=== PATIENT | male | born 1990 | race Caucasian/White ===

== ENCOUNTER 2018-03-27 08:04 | Emergency (ER) | payer OTHER ==
[~2018-03-27] VITALS: Ht 162.6 cm; Wt 70.3 kg
[~2018-03-27 08:04] MED LIST: ALBUTEROL2.5 MG/3 M INH/SOL; PREDNISONE10 M2 PO; PROVENTIL HFA6.7 GM INH
[2018-03-27 08:08] VITALS: BP 134/86
--- NOTE | 2018-03-27 08:51 | RADIOLOGY REPORT ---
EXAMINATION: CR CHEST CLINICAL INFORMATION: Left-sided lateral and posterior rib pain. Presumptive diagnosis of pneumonia, CHF, wide mediastinum. COMPARISON: Left shoulder films dated 04/08/2008. TECHNIQUE: 2 views of the chest were obtained. FINDINGS: The cardiomediastinal silhouette is within normal limits in size. Lungs bilaterally are symmetrically expanded and clear. No focal consolidation, effusion or pneumothorax is seen. Bony structures are unremarkable. No rib fracture is seen. IMPRESSION: Unremarkable examination. No evidence of pneumonia, CHF or wide mediastinum.
--- NOTE | 2018-03-27 09:01 | ED GENERAL ADULT ---
History of Present Illness General Chief Complaint: General Adult Stated Complaint: PAIN IN RIB MARY LEFT SIDE NO INJURY Source: patient Exam Limitations: no limitations Vital Signs & Intake/Output Vital Signs & Intake/Output Vital Signs Date Time Temp Pulse Resp B/P B/P Pulse O2 O2 Flow FiO2 Mean Ox Delivery Rate 03/27 0808 98.6 83 18 134/86 98 Room Air Allergies Coded Allergies: No Known Allergies (02/24/18) Reconcile Medications No Known Home Medications Triage Note: 27 YO MALE TO TRIAGE FOR EVAL OF L SIDED RIB PAIN, STATES PAIN IS WORSE ON INSPIRATION. RA SATS 98%. DENIES INJURY TO AREA. Triage Nurses Notes Reviewed? yes Onset: Abrupt Duration: week(s): (1-2), constant, continues in ED Timing: single episode today Injury Environment: home Severity: mild, moderate Severity Numbers: 8 No Modifying Factors: none HPI: 27-year-old male with a history of asthma presents for evaluation presents for evaluation of left lateral rib pain. Patient reports symptoms started 1-2 weeks in a been persistent. The pain is located in the left lateral ribs and does not radiate. The pain is present only with palpation and range of motion or deep inspiration. He denies any sugar event or trauma. He denies shortness of breath hemoptysis lower extremity edema or recent surgery or recent trauma. He has not taken any medicine for this. He denies any chest pain or back pain. No dizziness lightheadedness sweats chills nausea or vomiting. (Parth Alas) Past History Travel History Traveled to [place] past 21 day No Medical History Any Pertinent Medical History? see below for history Neurological: NONE EENT: NONE Cardiovascular: NONE Respiratory: asthma Gastrointestinal: NONE Hepatic: NONE Renal: NONE Musculoskeletal: NONE Psychiatric: NONE Endocrine: NONE Blood Disorders: NONE Cancer(s): NONE MASTER ELECTRICIAN/Reproductive: NONE Surgical History Surgical History: non-contributory Psychosocial History What is your primary language Cymra[place] Tobacco Use: Never used Family History Hx Contributory? No (Parth Alas) Review of Systems Review of Systems Constitutional: Reports: no symptoms. EENTM: Reports: no symptoms. Respiratory: Reports: see HPI (rib pain). Cardiovascular: Reports: see HPI (rib pain). GI: Reports: no symptoms. Genitourinary: Reports: no symptoms. Musculoskeletal: Reports: see HPI, muscle pain, muscle stiffness. Skin: Reports: no symptoms. Neurological/Psychological: Reports: no symptoms. Hematologic/Endocrine: Reports: no symptoms. Immunologic/Allergic: Reports: no symptoms. All Other Systems: Reviewed and Negative (Parth Alas) Physical Exam Physical Exam General Appearance: well developed/nourished, no apparent distress, alert, awake Head: atraumatic, normal appearance Eyes: Bilateral: normal appearance, EOMI. Ears, Nose, Throat: hearing grossly normal Neck: normal inspection, supple, full range of motion, no midline tenderness Respiratory: normal breath sounds, no respiratory distress, lungs clear, there is tenderness to palpation to the left lateral ribs and left scapular area. No bruising swelling or abrasions pain is reproducible with deep inspiration and range of motion of the left upper extremity and with range of motion of the trunk Cardiovascular: regular rate/rhythm, normal peripheral pulses Peripheral Pulses: 2+ radial (R), 2+ radial (L) Gastrointestinal: soft, non-tender, no splenomegaly Back: normal inspection, normal range of motion, no vertebral tenderness Extremities: normal inspection, normal range of motion, no edema Neurologic/Psych: no motor/sensory deficits, awake, alert, oriented x 3, normal gait, normal mood/affect Skin: intact, normal color, warm/dry Lymphatic: no anterior cervical laila Core Measures ACS in differential dx? No CVA/TIA Diagnosis: No Sepsis Present: No Sepsis Focused Exam Completed? No (Parth Alas) Progress Differential Diagnoses I considered the following diagnoses in my evaluation of the patient: [Muscle strain, fracture, rotator cuff injury, pneumonia, PE] Plan of Care: Patient is here with pain in his left lateral ribs without injury or known trigger event. On exam the pain is very reproducible with palpation range of motion and deep inspiration. Patient reports the pain resolves if he is not moving. perc score is negative. A chest x-ray was obtained and is within normal limits patient was medicated with Toradol and states she is feeling better. Patient was instructed to continue Tylenol or ibuprofen for pain. He declined muscle relaxers. Follow-up with primary care doctor discussed return precautions patient agrees the plan Diagnostic Imaging: Viewed by Me: Radiology Read. Discussed w/RAD: Radiology Read. CXR Impression: PATIENT: YONI SELF PRESENT AGE: 27 PATIENT ACCOUNT NO: [id number] : 92 LOCATION: [facility] ORDERING PHYSICIAN: Parth GUNDERSON SERVICE DATE: 03/27/18 EXAM TYPE: RAD - XRY-CHEST XRAY, TWO VIEWS EXAMINATION: CR CHEST CLINICAL INFORMATION: Left-sided lateral and posterior rib pain. Presumptive diagnosis of pneumonia, CHF, wide mediastinum. COMPARISON: Left shoulder films dated 04/08/2008. TECHNIQUE: 2 views of the chest were obtained. FINDINGS: The cardiomediastinal silhouette is within normal limits in size. Lungs bilaterally are symmetrically expanded and clear. No focal consolidation, effusion or pneumothorax is seen. Bony structures are unremarkable. No rib fracture is seen. IMPRESSION: Unremarkable examination. No evidence of pneumonia, CHF or wide mediastinum. DICTATED BY: Constance Humphreys MD DATE/TIME DICTATED:03/27/18845 CLAY STAIN MIXER:MEHRAN DATE/TIME TRANSCRIBED:03/27/18845 CONFIDENTIAL, DO NOT COPY WITHOUT APPROPRIATE AUTHORIZATION. <Electronically signed in Other Vendor System> SIGNED BY: Constance Humphreys MD 03/27/18850 Initial ED EKG: none (Marcial GUNDERSON,Parth) Departure Departure Disposition: HOME OR SELF CARE Condition: Stable Clinical Impression Primary Impression: Left-sided chest wall pain Referrals: Ankush PINK,Michael Whitlock (PCP/Family) Additional Instructions: Rest, avoid heavy lifting bending or excessive physical activity. Tylenol ( 1000MG EVERY 6 HOURS) and ibuprofen (800MG EVERY 8 HOURS WITH FOOD) as needed for pain. Make a follow-up appointment with her primary care doctor to review all results of today's visit. Monitor symptoms closely if you have worsening or changing pain coughing up blood and shortness of breath feel like YOU can pass out or any other concerns return immediately. Please note that there might be incidental findings in your evaluation that are unrelated to the current emergency department visit. Please notify your primary care doctor about this emergency department visit in order to obtain and review all of the testing performed so that these incidental findings can be monitored as needed. If you had an x-ray performed, please understand that some fractures or other findings may not be seen on the initial set of x-rays. If your symptoms persist you might need a repeat set of x-rays to check for such a fracture. If you had a laceration evaluated, please understand that foreign bodies such as glass or wood may not be visible to the naked eye or on plain x-rays. If the wound becomes red, swollen, increasingly more painful or if there is any drainage from the wound, please have it reevaluated by a physician for the possibility of a retained foreign body. If you're unable to follow up as outlined in the discharge instructions please return to the emergency department. Thank you for choosing the [facility] Emergency Department for your care. It was a pleasure to serve you today. Departure Forms: Customer Survey General Discharge Information Prescriptions: Current Visit Scripts No Known Home Medications (Parth Alas) PA/PLASTIC MAKER Co-Sign Statement Statement: ED Attending supervision documentation- I saw and evaluated the patient. I have also reviewed all the pertinent lab results and diagnostic results. I agree with the findings and the plan of care as documented in the PA's/PLASTIC MAKER's documentation. x I have reviewed the ED Record and agree with the PA's/PLASTIC MAKER's documentation. [] Additions or exceptions (if any) to the PAs/PLASTIC MAKER's note and plan are summarized below: [] (Denis PINK,Mikey) Critical Care Note Critical Care Note Critical Care Time: non-applicable (Parth Alas)
== END 2018-03-27 09:13 ==
LOC: ERH 08:04
DX: R07.89 Other chest pain (principal); J45.909 Unspecified asthma, uncomplicated
CPT/HCPCS: 71046; 96372; J1885